=== PATIENT | male | born 1970 | race Caucasian/White ===

== ENCOUNTER 2022-03-20 21:00 | Inpatient (IN) | payer OTHER ==
[~2022-03-20] VITALS: Ht 182.9 cm; Wt 113.9 kg
[~2022-03-20 21:00] MED LIST: BACTRIM DS 8001 TAB PO; NO HOME MEDICATIONS
[2022-03-20 21:21] LABS: BASO # 0.1 K/mm3 (0.0-0.2); BASO % 0.7 % (0.0-2.0); EOS # 0.3 K/mm3 (0.0-0.7); EOS % 3.2 % (0.0-4.0); GRAN # 5.1 K/mm3 (1.4-6.5); GRAN % 62.3 % (42.2-75.2); HEMATOCRIT 48.1 % (42.0-52.0); HEMOGLOBIN 16.5 g/dl (13.5-18.0); LYMPH # 1.8 K/mm3 (1.2-3.4); LYMPH % 21.8 % (20.0-51.0); MEAN CELL VOLUME 94 fl (80.0-100.0); MEAN CORPUSCULAR HEMOGLOBIN 32 pg (27-31); MEAN CORPUSCULAR HGB CONC 34 g/dl (33.0-37.0); MONO # 0.9 K/mm3 (0.1-0.6); MONO % 11.5 % (1.7-9.3); PLATELET COUNT 304 K/mm3 (130-400); RED BLOOD COUNT 5.12 M/mm3 (4.20-5.60); REDCELL DISTRIBUTION WIDTH-CV 14.6 % (11.5-14.5)
[2022-03-20 21:42] LABS: ALBUMIN 3.5 gm/dL (3.5-5.0); BILIRUBIN,TOTAL 0.7 mg/dL (0.2-1.2); CALCIUM 8.6 mg/dL (8.4-10.2); CREATININE, serum 1.16 mg/dL (0.72-1.25); POTASSIUM 3.7 mmol/L (3.5-4.5); TOTAL PROTEIN 6.2 gm/dL (6.2-8.1)
[2022-03-20 21:47] LABS: INR 1.2 (0.8-3.0); PROTHROMBIN TIME 13.9 SECONDS (9.7-12.8)
[2022-03-20 21:50] LABS: PARTIAL THROMBOPLASTIN TIME 30.6 SECONDS (26.0-37.0); TROPONIN-I 0.471 ng/mL (0.00-0.033)
[2022-03-20 23:08] LABS: HEMATOCRIT 45.1 % (42.0-52.0); HEMOGLOBIN 14.8 g/dl (13.5-18.0); MEAN CELL VOLUME 98 fl (80.0-100.0); MEAN CORPUSCULAR HEMOGLOBIN 32 pg (27-31); MEAN CORPUSCULAR HGB CONC 33 g/dl (33.0-37.0); MEAN PLATELET VOLUME 10.3 fl (7.4-10.4); PLATELET COUNT 287 K/mm3 (130-400); RED BLOOD COUNT 4.62 M/mm3 (4.20-5.60); REDCELL DISTRIBUTION WIDTH-CV 14.6 % (11.5-14.5)
[2022-03-21] VITALS (21 sets, daily range): BP systolic 107–153; BP diastolic 57–103; PULSE 57–138; TEMP 97.5–97.9
[2022-03-21 00:51] LABS: MAGNESIUM 1.9 mg/dL (1.6-2.6)
--- NOTE | 2022-03-21 03:09 | NUR ---
Pt brought up from ED.
[2022-03-21 03:50] LABS: BASO # 0.1 K/mm3 (0.0-0.2); BASO % 0.8 % (0.0-2.0); EOS # 0.2 K/mm3 (0.0-0.7); EOS % 2.1 % (0.0-4.0); GRAN # 5.3 K/mm3 (1.4-6.5); GRAN % 68.4 % (42.2-75.2); HEMATOCRIT 42.1 % (42.0-52.0); HEMOGLOBIN 14.3 g/dl (13.5-18.0); LYMPH # 1.4 K/mm3 (1.2-3.4); LYMPH % 18.3 % (20.0-51.0); MEAN CELL VOLUME 95 fl (80.0-100.0); MEAN CORPUSCULAR HEMOGLOBIN 32 pg (27-31); MEAN CORPUSCULAR HGB CONC 34 g/dl (33.0-37.0); MEAN PLATELET VOLUME 10.5 fl (7.4-10.4); MONO # 0.8 K/mm3 (0.1-0.6); PLATELET COUNT 245 K/mm3 (130-400); RED BLOOD COUNT 4.42 M/mm3 (4.20-5.60); REDCELL DISTRIBUTION WIDTH-CV 14.6 % (11.5-14.5)
[2022-03-21 03:52] LABS: CALCIUM 8.1 mg/dL (8.4-10.2); CREATININE, serum 0.83 mg/dL (0.72-1.25); POTASSIUM 4.5 mmol/L (3.5-4.5)
[2022-03-21 04:02] LABS: TROPONIN-I 6 HR POST INITIAL 0.395 ng/mL (0.00-0.033)
--- NOTE | 2022-03-21 04:15 | NUR ---
CRITICAL TROPONIN VALUE OF 0.395 CALLED IN BY LAB. NOTIFIED THE PROVIDER. NO NEW CHANGES AT THIS TIME.
--- NOTE | 2022-03-21 04:26 | NUR ---
Recieved pt from ED. Amio drip running at 34.5 and heparin was running at 20.5. Hep XA was drawn at 0320 and was 1.03. Following the Heparin gtt protocol the gtt has been stopped for 2 hours (starting at 0400) and a lab will be redrawn at 0600. Was notified by provider to hold the lasix drip for now and to monitor pt's BP's. BP was elevated initially when pt was brought to floor. Most recent BP was 128/88 at 0413. Recieved a call from tele with the concern that the pt was in v-tach. Immediately assessed pt and took a set of VS. BP was stable. HR was in 130-140's. Notified provider, who ordered a stat EKG. Pt remains in A-fib with HR ranging from 120's-140's. Pt denies chest pain. Lungs sound clear, but pt has some expiratory wheezing. Abdomen is rounded, but soft. Denies abdominal pain. No diaphoresis noted. 1+ edema noted in BLE. No skin issues noted. Was given phone verbal order to put pt on heart healthy diet. Provided pt with nourishment. Pt is alert and oriented. Reports he takes no medications at home. Denies cardiac history. States he lives at home. Continuing to monitor VS every hour. Educated pt to notify staff of any new onset chest pain. Will continue to adjust Heparin gtt as ordered. Pt reports no questions, will continue to monitor.
--- NOTE | 2022-03-21 05:51 | NUR ---
Provider called and notified me to give the previously ordered IV lasix, since the Pt is tolerating the amiodarone drip. Will administer per orders now.
--- NOTE | 2022-03-21 07:45 | NUR ---
Patient sitting in bed upon entering the room. Heparin gtt. restarted and rate adjusted according to protocol. New amiodarone gtt. started per orders. Patient denies any chest pain, palpitations, SOB, or dizziness. Patient A&Ox4, and a SBA assist d/t being on IV drips. Patient has call light w/in reach and has been encouraged to call if any needs arise.
--- NOTE | 2022-03-21 13:19 | NUR ---
Head Still Operator met with patient, Jay, for intake assessment/discharge planning: Patient is "groggy" but is oriented and willing to speak, increasingly alert throughout the discussion. He states he lives alone in a studio apartment that does have stairs to enter the home, in [place], [place]. His brother, Dank ([phone]) lives locally and brought him in to the ER last night. Patient denies use of any durable medical equipment, and he has no oxygen or diabetic needs. He does not anticipate needing these things at discharge, with a desire to return to his home. He has no primary care physician, and he accepts handouts including a list of PCPs in the area, as well as a local resource list including [facility] and [facility]. He states he takes no medications, but gets his prescriptions filled at [facility] pharmacy. He is not sure if his healthcare coverage will pay for medications. Patient informs he is interested in completing DPOA-HC/Advanced Directives paperwork, and he accepts a copy. He will review and notify this Head Still Operator if/when he decides he is ready to complete as he verbalizes understanding he may complete the paperwork for his EMR while in the hospital. *Discharge plan: home with local support/family. Patient may require medication assistance*
[2022-03-21 15:01] LABS: MEAN CELL VOLUME 94 fl (80.0-100.0); MEAN CORPUSCULAR HEMOGLOBIN 32 pg (27-31); MEAN CORPUSCULAR HGB CONC 34 g/dl (33.0-37.0); MEAN PLATELET VOLUME 10.1 fl (7.4-10.4); PLATELET COUNT 246 K/mm3 (130-400); RED BLOOD COUNT 4.37 M/mm3 (4.20-5.60); REDCELL DISTRIBUTION WIDTH-CV 14.6 % (11.5-14.5)
[2022-03-21 15:06] LABS: PARTIAL THROMBOPLASTIN TIME 57.8 SECONDS (26.0-37.0)
[2022-03-21 15:11] LABS: CALCIUM 8.1 mg/dL (8.4-10.2); CREATININE, serum 0.97 mg/dL (0.72-1.25); POTASSIUM 4.1 mmol/L (3.5-4.5)
[2022-03-21 15:14] LABS: INR 1.3 (0.8-3.0); PROTHROMBIN TIME 14.5 SECONDS (9.7-12.8)
--- NOTE | 2022-03-21 18:24 | NUR ---
New IVs started in patient's bilateral forearms. IVs in bilateral ACs were coming up on the 24hr harsha. Both new IVs are 20G. Heparin and amiodarone gtt continue to run. Patient's HR has remained high all day. Dr. Friend notified multiple times. Dr. Friend ordered 0.25mg lanoxin and 2.5mg lopressor to be given IV. These did not bring the HR down. Dr. Friend notified again, and ordered the rate to be increased one time. This RN also asked if ICU would be appropriate for the patient d/t his uncontrolled HR. Dr. Friend stated he was okay with this. shift supervisor film processing notified.
--- NOTE | 2022-03-21 18:32 | NUR ---
Hep Xa came back at a goal rate, this is the 2nd goal. Next redraw ordered for 03/22 @ 0600.
--- NOTE | 2022-03-21 19:55 | NUR ---
Pt had 1 small episode of emesis. Administered prn zofran. Will reassess pt and continue to monitor.
--- NOTE | 2022-03-21 20:02 | NUR ---
Pt had another emesis. Small, brown. Will continue to monitor.
--- NOTE | 2022-03-21 20:13 | NUR ---
Notified provider of Pt emesis x2. Will notify if pt has another emesis episode.
--- NOTE | 2022-03-21 23:25 | NUR ---
Pt alert and oriented this evening. Denies chest pain or other acute pain. Pt did have 2 emesis occurances earlier this evening. Prn zofran administered x1 per orders. No emesis occurances since. Pt reported concern about not having insurance currently. Stated he recently became unemployed from [employer] and is unsure of how to pay for hospital procedures. Consult for social work in active and I will notify dayshift about the concern. Shift assessment performed. Medications administered per orders and education provided. Pt's rythym continues in Afib. HR running between 115-135 currently. HR is in 140-150's when pt is OOB to bathroom. BP stable. Diastolic BP runs higher in 90's. Notified provider, no changes. Pt continuing on amiodarone gtt at 34.5 ml/hr and Heparin gtt at 20.5 ml/hr. Next heparin xa will be checked at 0600. Lung sounds are clear. Pt has expiratory wheezing at rest and is dyspneic on exertion. Denies feeling SOB/diaphoretic. Pt up to void once. Resting in bed now. Continuing to assess VS every hour. Monitoring heart rate/rythym on the site monitor. Educated pt to notify of any emesis or chest pain occurances. Pt reports no other questions at this time, will continue to monitor.
[2022-03-22] VITALS (27 sets, daily range): BP systolic 108–148; BP diastolic 76–97; PULSE 66–110; TEMP 97.7–98.2
--- NOTE | 2022-03-22 04:52 | NUR ---
Pt remains alert and oriented when awake, resting currently. Continued to deny chest pain overnight. Denies SOB and diaphoresis. Pt still has some minor expiratory wheezing at rest. BP stable. HR is currently running in the 80's-110's. Rythym is still a-fib. Satting WNL on room air. Amiodarone gtt continues at 34.5 ml/hr. Heparin gtt continues at 21.5 ml/hr. Hep xa will be drawn this morning at 0600 and gtt will be adjusted per orders. Pt has been NPO since 0000. No new episodes of emesis. Pt denies nausea currently. Pt reports no questions at this time, will continue to monitor VS every hour.
[2022-03-22 06:58] LABS: BASO % 0.6 % (0.0-2.0); EOS # 0.2 K/mm3 (0.0-0.7); EOS % 3.1 % (0.0-4.0); GRAN # 4.7 K/mm3 (1.4-6.5); HEMATOCRIT 42.9 % (42.0-52.0); HEMOGLOBIN 14.4 g/dl (13.5-18.0); LYMPH # 1.1 K/mm3 (1.2-3.4); LYMPH % 16.5 % (20.0-51.0); MEAN CELL VOLUME 96 fl (80.0-100.0); MEAN CORPUSCULAR HEMOGLOBIN 32 pg (27-31); MEAN CORPUSCULAR HGB CONC 34 g/dl (33.0-37.0); MEAN PLATELET VOLUME 9.7 fl (7.4-10.4); MONO # 0.7 K/mm3 (0.1-0.6); MONO % 10.4 % (1.7-9.3); PLATELET COUNT 231 K/mm3 (130-400); RED BLOOD COUNT 4.45 M/mm3 (4.20-5.60); REDCELL DISTRIBUTION WIDTH-CV 14.8 % (11.5-14.5)
[2022-03-22 07:18] LABS: ALBUMIN 3.2 gm/dL (3.5-5.0); BILIRUBIN,TOTAL 0.9 mg/dL (0.2-1.2); CALCIUM 8.3 mg/dL (8.4-10.2); CREATININE, serum 0.98 mg/dL (0.72-1.25); POTASSIUM 4.3 mmol/L (3.5-4.5); TOTAL PROTEIN 5.7 gm/dL (6.2-8.1)
--- NOTE | 2022-03-22 10:36 | NUR ---
Assessment completed, alert/oriented, vital signs stable, denies any chest pain or discomfort, still in A.fib but rate is improved and 80-110, denies any further palpitations, distal pulses are plapble, 1+ edema to BLE, lungs CTA/ no reps.difficulty, overall reports feeling improved, he remains on a Heparin gtt as well as Amiodarone gtt, plans for heart cath later today, he is NPO, denies needs or concers, will continue to monitor
--- NOTE | 2022-03-22 15:18 | NUR ---
Patient is going down for cardiac cath technologist at this time, HepXa was 0.82, stopping Heparin gtt for procedure, will adjust rate once patient returns from procedure
--- NOTE | 2022-03-22 15:33 | NUR ---
PATIENT ALERT AND ORIENTED. NO REPORTS OF PAIN. FAMILY IN ROOM. SEE MERGE FOR DETAILS ABOUT CATH WELL VITALS AND MEDICATION ADMINISTRATION.
--- NOTE | 2022-03-22 16:10 | NUR ---
Patient arrived back to room 353 from laboratory specialist at this time, alert/oriented, vital signs stable, denies pain or discomfort, right TR band in place/ 12ml air in band and will leave in place untill at least 1730 before we try and begin to deflate, good cap refill with no signs of impaired circulation, patient family present in the room, discussed cardiac cath and that findings were good/ no significant CAD and no PCI required, plans for CASI/CV 03/23/22 and discussed that procedure as well, will continue lorenza onitor patient
--- NOTE | 2022-03-22 17:45 | NUR ---
Continues to do well post heart cath, vital signs stable, denies pain, right radial band / 3cc removed at this time, tolerating PO intake, will ccontinue to monitor
--- NOTE | 2022-03-22 19:12 | NUR ---
TR band deflated no signs of bleeding or oozing, gave report to oncoming shift nurse KEN Solo
--- NOTE | 2022-03-22 21:20 | NUR ---
Patients ride home has arrived to the floor at approximately 1945. Discharge teaching has been completed and patient and his family express understanding. Patients R hand IV was removed without difficulty. Patient denied the use of a wheelchair when leaving the floor. Patient and family was escorted out by this RN. Patients gait was steady and showed no signs of weakness. Left in siblings personal vehicle.
[2022-03-23] VITALS (13 sets, daily range): BP systolic 92–127; BP diastolic 63–97; PULSE 53–116; TEMP 97.6–98.1
--- NOTE | 2022-03-23 03:37 | NUR ---
Report received from KEN Hughes. Pt is A&Ox4 and pleasant. Currently has 2 IV sites, R hand and R shoulder. Patient has tolerated oral intake well and complied with NPO at [facility] order. Full body assessment completed without difficulty. Pt is scheduled for a CASI on 03/23, time is not known at this time. Consent has been signed. Per discharge notes pt might discharge home 03/23 depending on his procedure. Patient has had no complaints of pain throughout the shift. R radial band was removed at approximately 2200, however, all air had been removed from day shift. I educated pt on how to care for R radial site. All other needs met at this time, call light within reach.
--- NOTE | 2022-03-23 06:33 | NUR ---
Pts R shoulder IV site was compromised, a streaking red line proximal to the IV site was observed. IV was removed and amiodarone tubing was switched to the present R forearm IV. A warm compress was applied to R shoulder IV site after removal. Pt denied pain.
[2022-03-23 07:02] LABS: BASO % 0.4 % (0.0-2.0); EOS # 0.2 K/mm3 (0.0-0.7); EOS % 2.5 % (0.0-4.0); GRAN # 5.3 K/mm3 (1.4-6.5); GRAN % 74.2 % (42.2-75.2); HEMATOCRIT 41.4 % (42.0-52.0); HEMOGLOBIN 14.1 g/dl (13.5-18.0); LYMPH # 0.8 K/mm3 (1.2-3.4); LYMPH % 11.5 % (20.0-51.0); MEAN CELL VOLUME 95 fl (80.0-100.0); MEAN CORPUSCULAR HEMOGLOBIN 32 pg (27-31); MEAN CORPUSCULAR HGB CONC 34 g/dl (33.0-37.0); MEAN PLATELET VOLUME 10.3 fl (7.4-10.4); MONO # 0.8 K/mm3 (0.1-0.6); PLATELET COUNT 242 K/mm3 (130-400); RED BLOOD COUNT 4.37 M/mm3 (4.20-5.60); REDCELL DISTRIBUTION WIDTH-CV 14.7 % (11.5-14.5)
[2022-03-23 07:18] LABS: CALCIUM 8.4 mg/dL (8.4-10.2); CREATININE, serum 0.82 mg/dL (0.72-1.25); POTASSIUM 4.3 mmol/L (3.5-4.5)
--- NOTE | 2022-03-23 11:27 | NUR ---
Pt's HR was running in upper 50's. Called tele, who could not tell if pt was NSR or still in A-fbi. Notified Dr. Friend who ordered for the amiodarone to be stopped and an EKG to be ordered.
--- NOTE | 2022-03-23 11:47 | NUR ---
PT MOTHER UPDATED ON PT CHANGE TO SINUS PETER AND CANCELLATION OF PROCEDURE.
--- NOTE | 2022-03-23 11:47 | NUR ---
Was notified pt's EKG was sinus dee dee. Notified cardiology. CASI cancelled. Will follow new medication orders. Amiodarone drip remains stopped. Will continue to monitor. Q4 vital signs resumed.
[2022-03-23 18:03] LABS: COLLECTION METHOD CLEAN CATCH
[2022-03-23 18:09] LABS: MUCOUS Present (NOT PRESENT); PH 6 (5-8); SQUAMOUS EPITHELIAL None Seen /hpf (0-10); URINE APPEARANCE Clear (CLEAR/HAZY); URINE BACTERIA None Seen /hpf (NONE SEEN); URINE BILIRUBIN Negative (NEGATIVE); URINE BLOOD Negative (NEGATIVE); URINE COLOR Yellow (YELLOW); URINE GLUCOSE 1+ (NEGATIVE); URINE KETONE Trace (NEGATIVE); URINE LEUKOCYTE ESTERASE Negative (NEGATIVE); URINE NITRATE Negative (NEGATIVE); URINE PROTEIN(semi-quant) Negative (NEGATIVE); URINE RBC 0-2 /hpf (0-2)
--- NOTE | 2022-03-23 18:32 | NUR ---
Pt alert and oriented today. Denies chest pain/SOB. Pt skin cool and moist, but no significant diaphoresis noted. Lung sounds clear/diminished. Expiratory wheezing noted at rest, but no SOB at rest. Pt's HR was in 90's to 110's this a.m. and in A-fib. Around 1120, I noticied the pt's HR was in 50's and had changed rythym. Notified the provider, who ordered to stop the amiodarone drip and ordered a stat EKG. The provider interpreted the EKG as sinus dee dee. The CASI scheduled for the pt was cancelled. The pt was ordered to be taken off of the newly ordered heparin and to continue to stop the amiodarone drip. Shift assessment performed at 0800. Medications administered and stopped per orders and education provided to pt and family. Pt remains in normal sinus rythym to sinus dee dee. Encouraged pt to ambulate, and he ambulated in the room. Pt taken off NPO and placed on AHA diet, ate lunch and dinner and tolerated well. Noted 2 hardened reddened areas on the right arm where previous IV sites were located and one red spot on one of the IV sites on the left. Provider notified and ordered benadryl and a venous doppler. Pt reports no pain at sites. Continuing to assess site. VS stable. HR in 60's currently. NSR. BP running softer this afternoon, but stable. Pt reports no questions, will continue to monitor.
[2022-03-24 04:24] VITALS: BP 112/64; PULSE 59; TEMP 98.3
[2022-03-24 05:54] LABS: BASO % 0.3 % (0.0-2.0); EOS # 0.2 K/mm3 (0.0-0.7); EOS % 2.4 % (0.0-4.0); GRAN # 4.9 K/mm3 (1.4-6.5); GRAN % 71.8 % (42.2-75.2); HEMATOCRIT 41.3 % (42.0-52.0); HEMOGLOBIN 13.4 g/dl (13.5-18.0); LYMPH # 0.9 K/mm3 (1.2-3.4); LYMPH % 13.7 % (20.0-51.0); MEAN CELL VOLUME 98 fl (80.0-100.0); MEAN CORPUSCULAR HEMOGLOBIN 32 pg (27-31); MEAN CORPUSCULAR HGB CONC 32 g/dl (33.0-37.0); MEAN PLATELET VOLUME 9.8 fl (7.4-10.4); MONO # 0.8 K/mm3 (0.1-0.6); MONO % 11.2 % (1.7-9.3); PLATELET COUNT 216 K/mm3 (130-400); REDCELL DISTRIBUTION WIDTH-CV 14.8 % (11.5-14.5)
[2022-03-24 06:08] LABS: CREATININE, serum 0.81 mg/dL (0.72-1.25); POTASSIUM 4.5 mmol/L (3.5-4.5)
[2022-03-24 07:58] VITALS: BP 123/67; PULSE 64; TEMP 97.6
[2022-03-24] MEDS ORDERED: ELIQUIS 5MG PO (08:53)
[2022-03-24] MEDS ORDERED: ALDACTONE 25MG25 M1 PO (08:53)
[2022-03-24] MEDS ORDERED: ALTACE 2.5MG T2.5 MG PO (08:53)
--- NOTE | 2022-03-24 09:24 | NUR ---
The patient is to discharge back home today, 03/24. The patient is self pay. He was secured a follow up appointment at [facility] on 03/31 at 1245. SW met with the patient to follow up about affording his medications. The patient states that he has a credit card that he will be able to pay for the meds for today. He had no concerns for SW. No additional needs at this time.
--- NOTE | 2022-03-24 10:57 | NUR ---
Pt alert and oriented. Up to have breakfast and ambulating in room. Pt independently showered. Pt denies chest pain/SOB. On room air. VS stable. HR NSR running in 60's. Shift assessment performed. Medications administered per orders and education provided. Lungs are clear/diminshed, but pt does have some expiratory wheezing. Pt will be discharging this afternoon. Will continue to monitor VS and HR. Will provide discharge education and instructions per orders. Pt reports no questions at this time, will continue to monitor.
[2022-03-24 11:27] VITALS: BP 111/71; PULSE 66; TEMP 97.5
[2022-03-24] MEDS ORDERED: CORDARONE200 MG/TAB PO (12:39)
--- NOTE | 2022-03-24 14:23 | NUR ---
Pt discharge information and education provided to patient. IV site removed. Discussed education plan with family at bedside as well, and answered all questions. Walked pt and family off unit and out to their car. No further concerns at this time.
== END 2022-03-24 14:20 | disposition home or self-care (01) | DRG 280 ==
LOC: COL.ER 21:00 → MEDICAL 23:20
PROVIDERS: Emergency Medicine; Family Medicine; Internal Medicine Cardiovascular Disease; Nurse Practitioner Family; Physician Assistant
PROC: 4A023N7 Measurement of Cardiac Sampling and Pressure, Left Heart, Percutaneous Approach (ICD-10-PCS; principal; 2022-03-22)
PROC: B2111ZZ Fluoroscopy of Multiple Coronary Arteries using Low Osmolar Contrast (ICD-10-PCS; 2022-03-22)
DX: I21.4 Non-ST elevation (NSTEMI) myocardial infarction (principal); I50.21 Acute systolic (congestive) heart failure; E87.2 Acidosis; J98.11 Atelectasis; I42.0 Dilated cardiomyopathy; E66.9 Obesity, unspecified; I48.91 Unspecified atrial fibrillation; E87.6 Hypokalemia; E87.8 Other disorders of electrolyte and fluid balance, not elsewhere classified; E11.65 Type 2 diabetes mellitus with hyperglycemia; I34.0 Nonrheumatic mitral (valve) insufficiency; Z20.822 Contact with and (suspected) exposure to COVID-19; Z68.33 Body mass index [BMI] 33.0-33.9, adult
CPT/HCPCS: 99223-AI; 99232-AI; 99233-AI; 99239; C1769; J0282; J1160; J1644; J1940; J2250; J2405; J3010; J7060; J7120; Q9967

== ENCOUNTER 2022-04-06 08:33 | Day surgery (SDC) | payer OTHER ==
[~2022-04-06] VITALS: Ht 183 cm; Wt 105.7 kg
[~2022-04-06 08:33] MED LIST changes: +ALDACTONE 25MG25 M1 PO; +ALTACE 2.5MG T2.5 MG PO; +CORDARONE200 MG/TAB PO; +ELIQUIS 5MG PO
[2022-04-06 09:19] LABS: BASO # 0.1 K/mm3 (0.0-0.2); EOS # 0.1 K/mm3 (0.0-0.7); EOS % 1.6 % (0.0-4.0); GRAN # 5.3 K/mm3 (1.4-6.5); GRAN % 71.9 % (42.2-75.2); HEMATOCRIT 46.5 % (42.0-52.0); HEMOGLOBIN 16.1 g/dl (13.5-18.0); LYMPH # 1.2 K/mm3 (1.2-3.4); LYMPH % 16.1 % (20.0-51.0); MEAN CELL VOLUME 92 fl (80.0-100.0); MEAN CORPUSCULAR HEMOGLOBIN 32 pg (27-31); MEAN CORPUSCULAR HGB CONC 35 g/dl (33.0-37.0); MEAN PLATELET VOLUME 8.7 fl (7.4-10.4); MONO # 0.7 K/mm3 (0.1-0.6); MONO % 8.9 % (1.7-9.3); PLATELET COUNT 325 K/mm3 (130-400); RED BLOOD COUNT 5.08 M/mm3 (4.20-5.60); REDCELL DISTRIBUTION WIDTH-CV 13.2 % (11.5-14.5)
[2022-04-06 09:21] LABS: INR 1.4 (0.8-3.0); PROTHROMBIN TIME 16.1 SECONDS (9.7-12.8)
[2022-04-06] MEDS ORDERED: ELIQUIS 5MG PO (09:23)
[2022-04-06 09:24] LABS: PARTIAL THROMBOPLASTIN TIME 35.3 SECONDS (26.0-37.0)
[2022-04-06] MEDS ORDERED: ALDACTONE 25MG25 M1 PO (09:24)
[2022-04-06] MEDS ORDERED: CORDARONE200 MG/TAB PO ×2 (09:24→11:05)
[2022-04-06] MEDS ORDERED: LIPITOR 80MG80 MG PO (09:24)
[2022-04-06] MEDS ORDERED: DIOVAN 40MG40 MG PO (09:25)
[2022-04-06 09:29] VITALS: BP 119/102; PULSE 133
[2022-04-06 09:34] LABS: CALCIUM 8.7 mg/dL (8.4-10.2); CREATININE, serum 1.03 mg/dL (0.72-1.25); POTASSIUM 4.5 mmol/L (3.5-4.5)
[2022-04-06 09:54] LABS: THYROID STIMULATING HORMONE 2.627 uIU/mL (0.350-4.940)
[2022-04-06 10:49] VITALS: BP 118/81; PULSE 81
--- NOTE | 2022-04-06 10:50 | NUR ---
Report from Jodee Mcdowell.
[2022-04-06 11:00] VITALS: BP 119/95; PULSE 84
[2022-04-06] MEDS ORDERED: TOPROL XL 25MG25 MG PO (11:06)
[2022-04-06 11:15] VITALS: BP 131/84; PULSE 84
[2022-04-06 11:30] VITALS: BP 111/88; PULSE 78
--- NOTE | 2022-04-06 12:00 | NUR ---
Discharge instructions given to pt.pt verbalizes nderstanding.INT removed,catheter tip intact.Pt escorted out via wheelchair by this nurse.
== END 2022-04-06 13:39 ==
LOC: COL.CAR 08:33
PROVIDERS: Internal Medicine Adult Congenital Heart Disease
DX: I48.92 Unspecified atrial flutter (principal); I42.8 Other cardiomyopathies; I48.91 Unspecified atrial fibrillation; Z79.01 Long term (current) use of anticoagulants; Z79.899 Other long term (current) drug therapy
CPT/HCPCS: J0282; J2704; J7060; J7120

== ENCOUNTER 2022-05-28 11:01 | Inpatient (IN) | payer OTHER ==
[~2022-05-28] VITALS: Ht 180.3 cm; Wt 118.4 kg
[~2022-05-28 11:01] MED LIST changes: +DIOVAN 40MG40 MG PO; +LIPITOR 80MG80 MG PO; +TOPROL XL 25MG25 MG PO
[2022-05-28 12:30] LABS: BASO % 0.6 % (0.0-2.0); EOS % 0.6 % (0.0-4.0); GRAN # 5.1 K/mm3 (1.4-6.5); GRAN % 78.3 % (42.2-75.2); HEMATOCRIT 43.7 % (42.0-52.0); HEMOGLOBIN 14.5 g/dl (13.5-18.0); LYMPH # 0.8 K/mm3 (1.2-3.4); LYMPH % 11.7 % (20.0-51.0); MEAN CELL VOLUME 97 fl (80.0-100.0); MEAN CORPUSCULAR HEMOGLOBIN 32 pg (27-31); MEAN CORPUSCULAR HGB CONC 33 g/dl (33.0-37.0); MEAN PLATELET VOLUME 9.9 fl (7.4-10.4); MONO # 0.5 K/mm3 (0.1-0.6); MONO % 8.2 % (1.7-9.3); PLATELET COUNT 242 K/mm3 (130-400); RED BLOOD COUNT 4.53 M/mm3 (4.20-5.60); REDCELL DISTRIBUTION WIDTH-CV 15.1 % (11.5-14.5)
[2022-05-28 12:44] LABS: ALBUMIN 2.7 gm/dL (3.5-5.0); BILIRUBIN,TOTAL 1.1 mg/dL (0.2-1.2); CALCIUM 8.3 mg/dL (8.4-10.2); CREATININE, serum 1.06 mg/dL (0.72-1.25); POTASSIUM 4.4 mmol/L (3.5-4.5)
[2022-05-28 12:49] LABS: TROPONIN-I 0.01 ng/mL (0.00-0.033)
--- NOTE | 2022-05-28 15:57 | NUR ---
PT ADMITTED TO UNIT. ADMISSION INTAKE AND ASSESSMENT COMPLETED. MED REC UPDATED. PT ORIENTED TO ROOM. DENIES ANY PAIN OR NEEDS AT THIS TIME. THIS RN NOTED BLE TO BE COOL TO THE TOUCH WITH 2+ EDEMA. WILL CONTINUE TO MONITOR.
[2022-05-28 16:13] VITALS: BP 102/81; PULSE 118; TEMP 97.8
[2022-05-28 20:41] VITALS: BP 103/79; PULSE 116; TEMP 97.9
[2022-05-28 22:14] LABS: ANION GAP 10 mmol/L (7-16); BLOOD UREA NITROGEN 22 mg/dL (8-26); CALCIUM 8.9 mg/dL (8.4-10.2); CARBON DIOXIDE 25 mmol/L (22-29); CHLORIDE 110 mmol/L (98-107); CREATININE, serum 1.12 mg/dL (0.72-1.25); GLUCOSE 116 mg/dL (70-99); MAGNESIUM 1.9 mg/dL (1.6-2.6); POTASSIUM 4.7 mmol/L (3.5-4.5); SODIUM 145 mmol/L (136-145)
[2022-05-28 22:23] LABS: TROPONIN-I < 0.010 ng/mL (0.00-0.033)
[2022-05-29] VITALS (16 sets, daily range): BP systolic 85–128; BP diastolic 41–95; PULSE 62–117; TEMP 97.6–97.9
[2022-05-29 04:07] LABS: BASO # 0.1 K/mm3 (0.0-0.2); BASO % 0.7 % (0.0-2.0); EOS # 0.2 K/mm3 (0.0-0.7); GRAN # 4.9 K/mm3 (1.4-6.5); GRAN % 66.1 % (42.2-75.2); HEMATOCRIT 47.4 % (42.0-52.0); HEMOGLOBIN 15.8 g/dl (13.5-18.0); LYMPH # 1.5 K/mm3 (1.2-3.4); LYMPH % 20.3 % (20.0-51.0); MEAN CELL VOLUME 96 fl (80.0-100.0); MEAN CORPUSCULAR HEMOGLOBIN 32 pg (27-31); MEAN CORPUSCULAR HGB CONC 33 g/dl (33.0-37.0); MEAN PLATELET VOLUME 9.2 fl (7.4-10.4); MONO # 0.8 K/mm3 (0.1-0.6); MONO % 10.5 % (1.7-9.3); PLATELET COUNT 229 K/mm3 (130-400); RED BLOOD COUNT 4.94 M/mm3 (4.20-5.60); REDCELL DISTRIBUTION WIDTH-CV 15.2 % (11.5-14.5)
[2022-05-29 04:32] LABS: ALBUMIN 3.1 gm/dL (3.5-5.0); CALCIUM 9.1 mg/dL (8.4-10.2); CREATININE, serum 1.14 mg/dL (0.72-1.25); PHOSPHOROUS 3.8 mg/dL (2.3-4.7)
--- NOTE | 2022-05-29 05:15 | NUR ---
CONTACTED BY [employer]ing[employer], THAT PT HAD 7 BEATS OF V-TACH AND HIS HEART RATE WAS GOING HIGH THE 180'S. WENT IN TO CHECK ON PT. PT UP BRUSHING HIS TEETH. I ASK PT IF HE WAS FEELING ALRIGHT. PT RESPONDED, "YEAH, I FEEL FINE. JUST BRUSHING MY TEETH." I ASKED IF HE WAS HAVING CHEST PAIN, DIZZINESS, ETC. PT STATED, "NO." VSS. HOSPITALIST CONTACTED. EKG AND LABS ORDERED. PT PLACED ON AMIODARONE DRIP. PT TOLERATING WELL, VSS THROUGHOUT. CALL LIGHT WITHIN REACH.
--- NOTE | 2022-05-29 07:30 | NUR ---
Patient sitting up in bed, A&Ox4. VSS, VS monitores Q1 HR. IV CDI, fluids infusing. Denies pain and discomfort. Independent with urinal. Call light within reach
--- NOTE | 2022-05-29 12:18 | NUR ---
SW met with patient to complete intake. Patient provides that he lives alone in [facility]. Next of kin is his father Dov Jenkins [phone]. Patient states that he does not utilize DME and is independent with ADL's. PCP is Dr. Sahu, pharmacy is [facility]. Patient states that he does not have anyone appointed as DPOA/HC and did not wish to appoint anyone at this time. Patient states that he plans to return to his home upon DC. SW will continue to follow. DC plan: home
--- NOTE | 2022-05-29 12:45 | NUR ---
stopped by but nothing needed at this time.
--- NOTE | 2022-05-29 17:39 | NUR ---
Patient independent in the room, denies pain and discomfort. A&Ox4. VSS. IV CDI. Fluid restriction in place and tolerating well. No further needs expressed. Call light within reach
[2022-05-30] VITALS (7 sets, daily range): BP systolic 82–108; BP diastolic 59–78; PULSE 109–112; TEMP 97.5–98.2
--- NOTE | 2022-05-30 05:20 | NUR ---
PT HAD SOME LOW B/P'S AFTER GIVEN METOPROLOL (85/60 & 85/53). PT NON-SYMPTOMATIC AND IS MENTATING NORMALLY. PT DENIED CHEST PAIN, DIZZINESS, SOB OR N,V,D. WILL CONTINUE TO MONITOR. CALL LIGHT WITHIN.
[2022-05-30 07:10] LABS: BASO # 0.1 K/mm3 (0.0-0.2); BASO % 0.9 % (0.0-2.0); EOS # 0.1 K/mm3 (0.0-0.7); EOS % 1.8 % (0.0-4.0); GRAN # 3.9 K/mm3 (1.4-6.5); GRAN % 68.3 % (42.2-75.2); HEMATOCRIT 43.7 % (42.0-52.0); HEMOGLOBIN 14.2 g/dl (13.5-18.0); LYMPH # 1.1 K/mm3 (1.2-3.4); LYMPH % 18.7 % (20.0-51.0); MEAN CELL VOLUME 97 fl (80.0-100.0); MEAN CORPUSCULAR HEMOGLOBIN 32 pg (27-31); MEAN CORPUSCULAR HGB CONC 33 g/dl (33.0-37.0); MEAN PLATELET VOLUME 9.7 fl (7.4-10.4); MONO # 0.6 K/mm3 (0.1-0.6); MONO % 10.1 % (1.7-9.3); PLATELET COUNT 208 K/mm3 (130-400); RED BLOOD COUNT 4.51 M/mm3 (4.20-5.60); REDCELL DISTRIBUTION WIDTH-CV 15.4 % (11.5-14.5)
[2022-05-30 07:24] LABS: ALBUMIN 2.6 gm/dL (3.5-5.0); CALCIUM 8.4 mg/dL (8.4-10.2); CREATININE, serum 1.12 mg/dL (0.72-1.25); PHOSPHOROUS 4.2 mg/dL (2.3-4.7); POTASSIUM 3.8 mmol/L (3.5-4.5)
--- NOTE | 2022-05-30 08:00 | NUR ---
Patient sitting up in bed eating breakfast. A&Ox4. VSS. IV CDI. Denies pain and discomfort. Independent in the room. Fluid restriction in place. Call light within reach
--- NOTE | 2022-05-30 17:45 | NUR ---
Patient had an uneventful day. A&Ox4. VSS. BP hypotensive, doctor aware. IV CDI. Denies pain and discomfort. Walked the hallway independently with nursing staff. Call light within reach
[2022-05-31] VITALS (14 sets, daily range): BP systolic 86–98; BP diastolic 62–70; PULSE 44–108; TEMP 97.5–98.2
--- NOTE | 2022-05-31 05:30 | NUR ---
ASSESSMENT COMPLETE FOR SPRAY FOAM INSTALLER. PT HAD A PRETTY UNEVENTFUL NIGHT. VSS. BLOOD SUGARS STABLE. PT MENTATING NORMAL AND IS ASYMPTOMATIC. CALL LIGHT WITHIN REACH.
[2022-05-31 06:59] LABS: BASO # 0.1 K/mm3 (0.0-0.2); BASO % 0.8 % (0.0-2.0); EOS # 0.1 K/mm3 (0.0-0.7); EOS % 1.8 % (0.0-4.0); GRAN # 4.8 K/mm3 (1.4-6.5); GRAN % 68.4 % (42.2-75.2); HEMATOCRIT 46.2 % (42.0-52.0); HEMOGLOBIN 15.1 g/dl (13.5-18.0); LYMPH # 1.4 K/mm3 (1.2-3.4); LYMPH % 19.1 % (20.0-51.0); MEAN CELL VOLUME 97 fl (80.0-100.0); MEAN CORPUSCULAR HEMOGLOBIN 32 pg (27-31); MEAN CORPUSCULAR HGB CONC 33 g/dl (33.0-37.0); MEAN PLATELET VOLUME 9.7 fl (7.4-10.4); MONO # 0.7 K/mm3 (0.1-0.6); MONO % 9.3 % (1.7-9.3); PLATELET COUNT 210 K/mm3 (130-400); RED BLOOD COUNT 4.75 M/mm3 (4.20-5.60); REDCELL DISTRIBUTION WIDTH-CV 15.1 % (11.5-14.5)
[2022-05-31 07:29] LABS: CALCIUM 8.7 mg/dL (8.4-10.2); CREATININE, serum 1.15 mg/dL (0.72-1.25); MAGNESIUM 2.2 mg/dL (1.6-2.6); PHOSPHOROUS 3.6 mg/dL (2.3-4.7); POTASSIUM 4.2 mmol/L (3.5-4.5)
--- NOTE | 2022-05-31 08:00 | NUR ---
Pt lying down in bed A&O X4. Remains NPO for procedure. Peripheral line on left arm CDI. No redness or edema. Denies pain or discomfort. Call light within reach.
--- NOTE | 2022-05-31 09:23 | NUR ---
Initial visit; [employer] Stamper greeted patient who declined Spiritual Care. [employer] Stamper offered God's blessings.
[2022-05-31] MEDS ORDERED: ELIQUIS 5MG PO (15:00)
[2022-05-31] MEDS ORDERED: CEPHALEXIN500 M1 PO (15:00)
[2022-05-31] MEDS ORDERED: CORDARONE200 MG/TAB PO (15:01)
[2022-05-31] MEDS ORDERED: TOPROL XL 25MG25 MG PO (15:01)
[2022-05-31] MEDS ORDERED: LASIX 40MG TABL40 MG PO (15:02)
[2022-05-31] MEDS ORDERED: LEVEMIR100 U/ML SQ (15:04)
[2022-05-31] MEDS ORDERED: GLUCOPHAGE1000 MG PO (17:14)
--- NOTE | 2022-05-31 17:29 | NUR ---
Discharge paperwork reviewed with the patient and family. IV removed, tip intact. Patient taken by wheelchair to awaiting vehicle. No further needs expressed.
== END 2022-05-31 17:30 | disposition home or self-care (01) | DRG 260 ==
LOC: COL.ER 11:01 → MEDICAL 13:36
PROVIDERS: Nurse Practitioner Family; Personal Emergency Response Attendant; ADMIT Internal Medicine
PROC: 0JH632Z Insertion of Monitoring Device into Chest Subcutaneous Tissue and Fascia, Percutaneous Approach (ICD-10-PCS; principal; 2022-05-31)
PROC: 5A2204Z Restoration of Cardiac Rhythm, Single (ICD-10-PCS; 2022-05-31)
DX: I11.0 Hypertensive heart disease with heart failure (principal); I50.23 Acute on chronic systolic (congestive) heart failure; I47.2 Ventricular tachycardia; I48.92 Unspecified atrial flutter; I48.91 Unspecified atrial fibrillation; E87.70 Fluid overload, unspecified; E78.5 Hyperlipidemia, unspecified; K21.9 Gastro-esophageal reflux disease without esophagitis; I34.0 Nonrheumatic mitral (valve) insufficiency; E11.9 Type 2 diabetes mellitus without complications; I42.0 Dilated cardiomyopathy; E87.6 Hypokalemia; Z79.01 Long term (current) use of anticoagulants; I25.2 Old myocardial infarction; Z72.89 Other problems related to lifestyle; Z79.4 Long term (current) use of insulin; Z23 Encounter for immunization
CPT/HCPCS: OP; C1764; G0378; J0282; J1815; J1940; J2704; J7050